=== PATIENT | male | born 1995 | race Asian ===

== ENCOUNTER 2016-08-17 00:04 | Emergency (ER) | payer OTHER ==
--- NOTE | 2016-08-17 00:26 | EDPHY ---
H & P Stated Complaint: heart "heavy" anxiety ? HPI/ROS: HPI CHIEF COMPLAINT: chest tightness, tingling in arms HISTORY OF PRESENT ILLNESS: This patient very pleasant 21-year-old male, significant past medical history for HIV, on medication, presents emergency room at 12:30 p.m. at night with heaviness in his chest and tingling in his arms. He tells me does not feel anxious. He states this happened about 3 hours ago. He tells me over the past few months he has had tingling in his legs and arms every morning when he wakes up. He denies a history of anxiety or panic attacks. He denies nausea vomiting recent illness, denies cough, denies fever, denies chest pain or pain radiating down his arm back or neck. Currently tells me that his arms or tingling and he has tightness across his chest. 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 Exam Constitutional appears well nontoxic, triage nursing summary reviewed, vital signs reviewed, awake/alert. Eyes normal conjunctivae and sclera, EOMI, PERRLA. HENT normal inspection, atraumatic, moist mucus membranes, no epistaxis, neck supple/ no meningismus, no raccoon eyes. Respiratory clear to auscultation bilaterally, normal breath sounds, no respiratory distress, no wheezing. Cardiovascular rate normal, regular rhythm, no murmur, no edema, distal pulses normal. Gastrointestinal soft, non-tender, no rebound, no guarding, normal bowel sounds, no distension, no pulsatile mass. Genitourinary no CVA tenderness. Musculoskeletal no midline vertebral tenderness, full range of motion, no calf swelling, no tenderness of extremities, no meningismus, good pulses, neurovascularly intact. Skin pink, warm, & dry, no rash, skin atraumatic. Neurologic awake, alert and oriented x 3, AAOx3, moves all 4 extremities equally, motor intact, sensory intact, CN II-XII intact, normal cerebellar, normal vision, normal speech. Psychiatric normal mood/affect. Heme/Lymph/Immune no lymphadenopathy. Differential diagnosis includes but is not limited to: acute anxiety,ACS, atypical chest pain, pneumothorax, pneumonia, pulmonary embolism, aortic dissection, congestive heart failure, tumor, musculoskeletal pain, esophageal pain, GERD, peptic ulcer disease, pancreatitis Medical Decision Making: The patient had an IV established obtain blood work he will be hydrated normal saline, IV Ativan for anxiety, check an EKG, chest x- ray and troponin. Unlikely to be acute coronary syndrome most likely anxiety. Re-evaluation: EKG interpretation by me on record in [facility] system. Impression time of EKG 12:34 a.m., this is sinus rhythm rate of 74 there is an early report pattern present. Otherwise unremarkable EKG. CT scan of the angiogram chest with IV contrast The results of the study are negative for pulmonary embolism no pericardial effusion, no pneumonia unremarkable CT angiogram of the chest The study was read by Dr. Correa I viewed the images myself on the PACS system. 0240: Re-evaluation this time this patient is resting comfortably no acute distress. He is requesting be discharged. He is comfortable discharge planning. He has no chest pain or shortness of breath his workup is unremarkable he did have a positive D-dimer however CT angiogram of his chest is unremarkable. Source: Patient - Personal History Current Tetanus/Diphtheria Vaccine: Yes Current Tetanus Diphtheria and Acellular Pertussis (TDAP): Yes - Medical/Surgical History Hx Asthma: No Hx Chronic Respiratory Disease: No Hx Diabetes: No Hx Cardiac Disease: No Hx Renal Disease: No Hx Cirrhosis: No Hx Alcoholism: No Hx HIV/AIDS: No Hx Splenectomy or Spleen Trauma: No Constitutional: Initial Vital Signs Temperature (C) 36.4 C 08/17/16 00:14 Heart Rate 80 08/17/16 00:14 Respiratory Rate 18 08/17/16 00:14 Blood Pressure 116/57 L 08/17/16 00:14 O2 Sat (%) 97 08/17/16 00:14 O2 Delivery Mode Room Air Allergies/Adverse Reactions: No Known Allergies Allergy (Unverified 08/17/16 00:12) Home Medications: Medication Instructions Recorded Lorazepam [Ativan] 1 mg PO DAILY #5 tablet 08/17/16 Triumeq Tablet 08/17/16 Medical Decision Making - Data Points Laboratory Results: Laboratory Results 08/17/16 00:50 08/17/16 00:50 08/17/16 00:50 WBC 8.20 10^3/uL (3.80-9.50) RBC 4.73 10^6/uL (4.40-6.38) Hgb 16.2 g/dL (13.7-17.5) Hct 44.6 % (40.0-51.0) MCV 94.3 fL (81.5-99.8) MCH 34.2 H pg (27.9-34.1) MCHC 36.3 g/dL (32.4-36.7) RDW 11.9 % (11.5-15.2) Plt Count 202 10^3/uL (150-400) MPV 10.3 fL (8.7-11.7) Neut % (Auto) 51.6 % (39.3-74.2) Lymph % (Auto) 40.7 % (15.0-45.0) [place] % (Auto) 6.1 % (4.5-13.0) Eos % (Auto) 1.0 % (0.6-7.6) Baso % (Auto) 0.4 % (0.3-1.7) Nucleat RBC Rel Count 0.0 % (0.0-0.2) Absolute Neuts (auto) 4.23 10^3/uL (1.70-6.50) Absolute Lymphs (auto) 3.34 H 10^3/uL (1.00-3.00) Absolute Monos (auto) 0.50 10^3/uL (0.30-0.80) Absolute Eos (auto) 0.08 10^3/uL (0.03-0.40) Absolute Basos (auto) 0.03 10^3/uL (0.02-0.10) Absolute Nucleated RBC 0.00 10^3/uL (0-0.01) Immature Gran % 0.2 % (0.0-1.1) Immature Gran # 0.02 10^3/uL (0.00-0.10) D-Dimer 0.55 H ug/mLFEU (0.00-0.50) Turbidity 237 Sodium 140 mEq/L (134-144) Potassium 4.5 mEq/L (3.5-5.2) Chloride 105 mEq/L (97-110) Carbon Dioxide 24 mEq/l (22-31) Anion Gap 11 mEq/L (8-16) BUN 19 mg/dL (7-23) Creatinine 0.9 mg/dL (0.7-1.3) Estimated GFR > 60 Glucose 91 mg/dL (70-100) Calcium 9.2 mg/dL (8.5-10.4) Magnesium 2.0 mg/dL (1.6-2.3) Total Bilirubin 1.3 mg/dL (0.1-1.4) Conjugated Bilirubin 1.2 H mg/dL (0.0-0.5) Unconjugated Bilirubin 0.1 mg/dL (0.0-1.1) AST 39 IU/L (17-59) ALT 32 IU/L (21-72) Alkaline Phosphatase 63 IU/L (38-126) Creatine Kinase 132 IU/L (0-224) CK-MB (CK-2) Fraction 0.91 ng/mL (0-3.19) Troponin I < 0.012 ng/mL (0-0.034) NT-Pro-B Natriuret Pep 34 pg/mL (0-125) Total Protein 7.6 g/dL (6.3-8.2) Albumin 4.4 g/dL (3.5-5.0) Lipase 53.0 IU/L (23-300) Specimen Hemolysis 215 Medications Given: Discontinued Medications Sodium Chloride (Ns) 1,000 mls @ 0 mls/hr IV ONCE ONE PRN Reason: As Directed Stop: 08/17/16 00:38 Last Admin: 08/17/16 00:54 Dose: 1,000 mls Lorazepam (Ativan Injection) 0.5 mg IVP EDNOW ONE Stop: 08/17/16 00:38 Last Admin: 08/17/16 00:54 Dose: 0.5 mg Departure - Departure Disposition: Home, Routine, Self-Care Clinical Impression: Anxiety Condition: Good Instructions: Anxiety (ED) Additional Instructions: 1. return to the emergency room if develops any worsening symptoms questions or concerns. 2. only take Ativan anxiety medication if you need if her feeling very anxious. Referrals: Solange Antunez NP [Primary Care Provider] - As per Instructions Prescriptions: Lorazepam [Ativan] 1 mg PO DAILY #5 tablet
--- NOTE | 2016-08-17 00:36 | CPEKG ---
Heart Rate: 74 RR Interval: 811 P-R Interval: 168 QRSD Interval: 98 QT Interval: 360 QTC Interval: [address] [place]: [address] [place]: [address] [place]: 64 EKG Severity - NORMAL ECG - EKG Impression: SINUS RHYTHM Electronically Signed By: Otilio Rizzo 17-Aug-2016 10:10:46
[2016-08-17] MEDS ORDERED: NS 1,000 ML IV ONE (00:37)
[2016-08-17] MEDS ORDERED: LORazepam 2 MG/ML INJ IVP ONE (00:37)
[2016-08-17 01:00] LABS: % IMMATURE GRANULYOCYTES 0.2 % (0.0-1.1); ABSOLUTE IMMATURE GRANULOCYTES 0.02 10^3/uL (0.00-0.10); ADD DIFF? NO; ADD MORPH? NO; ADD SCAN? NO; ATYPICAL LYMPHOCYTE FLAG 0 (0-99); FRAGMENT RBC FLAG 0 (0-99); HEMATOCRIT 44.6 % (40.0-51.0); HEMOGLOBIN 16.2 g/dL (13.7-17.5); LEFT SHIFT FLG 0 (0-99); LIPEMIA HEMOLYSIS FLAG 90 (0-99); MEAN CELL HEMOGLOBIN 34.2 pg (27.9-34.1); MEAN CELL HEMOGLOBIN CONCENTR. 36.3 g/dL (32.4-36.7); MEAN CELL VOLUME 94.3 fL (81.5-99.8); MEAN PLATELET VOLUME 10.3 fL (8.7-11.7); PLATELET CLUMPS FLAG 10 (0-99); PLATELET COUNT 202 10^3/uL (150-400); RED BLOOD CELL COUNT 4.73 10^6/uL (4.40-6.38); RED CELL DISTRIBUTION WIDTH 11.9 % (11.5-15.2)
[2016-08-17 01:10] LABS: ALANINE AMINOTRANSFERASE 32 IU/L (21-72); ALBUMIN 4.4 g/dL (3.5-5.0); ALKALINE PHOSPHATASE 63 IU/L (38-126); ANION GAP 11 mEq/L (8-16); ASPARTATE AMINOTRANSFERASE 39 IU/L (17-59); BILIRUBIN,TOTAL 1.3 mg/dL (0.1-1.4); BILIRUBIN-CONJUGATED 1.2 mg/dL (0.0-0.5); BILIRUBIN-UNCONJUGATED 0.1 mg/dL (0.0-1.1); CALCIUM 9.2 mg/dL (8.5-10.4); CARBON DIOXIDE 24 mEq/l (22-31); CHLORIDE 105 mEq/L (97-110); CREATININE 0.9 mg/dL (0.7-1.3); GLOMERULAR FILTRATION RATE > 60; GLUCOSE 91 mg/dL (70-100); POTASSIUM 4.5 mEq/L (3.5-5.2); SODIUM 140 mEq/L (134-144); SPECIMEN TURBIDITY 237; TOTAL PROTEIN 7.6 g/dL (6.3-8.2)
[2016-08-17 01:17] LABS: SPECIMEN HEMOLYSIS 215
[2016-08-17 01:22] LABS: CREATINE KINASE-MB FRACTION 0.91 ng/mL (0-3.19); TROPONIN I < 0.012 ng/mL (0-0.034)
[2016-08-17] MEDS ORDERED: IOPAMIDOL (ISOVUE 370) 100 ML BTL IV ONE (01:34)
[2016-08-17] MEDS ORDERED: LORAZEPAM 1 MG PREPACK#4 BTL TAKEHOME ONE ×2 (02:53→03:06)
[2016-08-17 03:05] VITALS: RESP 18
[2016-08-17 03:23] VITALS: BP 129/72; PULSE 83; TEMP 97.9; O2SAT 94
[2016-08-17] MEDS ORDERED: HEPARIN PRESERV FREE 1 UNIT/1 ML 5 ML SYR IVP SCH (03:30)
--- NOTE | 2016-08-17 09:11 | CT ---
CT Chest Angiogram Indication: Pleuritic pain. Technique: Thinly collimated multidetector helical CT imaging was performed through the chest while 75 mL of Isovue-370 were injected intravenously without complication. The images were then transferr ed to an independent workstation where multiplanar reconstructions were performed. Dose reduction margo hniques were utilized. Comparison: Portable chest earlier today. Findings: CT Chest Angiogram: The pulmonary arterial system is well opacified. No intraluminal filling defect s to suggest acute or chronic thrombopulmonary embolic disease. The thoracic aorta is normal caliber . No aneurysm or dissection. CT Chest: The lungs are well aerated and clear. No pneumothorax, pulmonary edema, or airspace consoli dation. The central airway is clear. No pericardial or pleural effusion. No enlarged lymph nodes or m asses. The imaged portion of the upper abdomen is negative. No paraspinal soft tissue swelling, fract ure, or bone lesion. Impression: 1. No evidence of thrombopulmonary embolic disease. 2. Clear lungs. No explanation for pleuritic pain. The study was performed as an emergency on-call case and discussed by telephone with Dr. Montano at 2 :15 a.m. August 17, 2016. The final interpretation is concordant with the original communication.
--- NOTE | 2016-08-17 10:23 | DX ---
Portable Chest, 00:49 History: Chest pain Comparison: None Findings: Lungs clear. Heart size and pulmonary vascularity are normal. No pleural effusion or pneumo thorax. No obvious skeletal abnormality. Impression: Negative
== END 2016-08-17 03:04 | disposition home or self-care (01) ==
DX: F41.9 Anxiety disorder, unspecified (principal); B20 Human immunodeficiency virus [HIV] disease
CPT/HCPCS: 96374; Q9967

== ENCOUNTER 2016-08-28 20:10 | Emergency (ER) | payer OTHER ==
[2016-08-28] MEDS ORDERED: NS 1,000 ML IV ONE (20:35)
--- NOTE | 2016-08-28 21:02 | CPEKG ---
Heart Rate: 87 RR Interval: 690 P-R Interval: 172 QRSD Interval: 102 QT Interval: 356 QTC Interval: 429 P [place]: 73 QRS [place]: 47 T Wave [place]: 62 EKG Severity - NORMAL ECG - EKG Impression: SINUS RHYTHM Electronically Signed By: Otilio Rizzo 28-Aug-2016 22:02:25
[2016-08-28 21:14] LABS: % IMMATURE GRANULYOCYTES 0.3 % (0.0-1.1); ABSOLUTE IMMATURE GRANULOCYTES 0.02 10^3/uL (0.00-0.10); ADD DIFF? NO; ADD MORPH? NO; ADD SCAN? NO; ATYPICAL LYMPHOCYTE FLAG 10 (0-99); FRAGMENT RBC FLAG 0 (0-99); HEMATOCRIT 45.7 % (40.0-51.0); HEMOGLOBIN 16.2 g/dL (13.7-17.5); LEFT SHIFT FLG 0 (0-99); LIPEMIA HEMOLYSIS FLAG 90 (0-99); MEAN CELL HEMOGLOBIN 33.4 pg (27.9-34.1); MEAN CELL HEMOGLOBIN CONCENTR. 35.4 g/dL (32.4-36.7); MEAN CELL VOLUME 94.2 fL (81.5-99.8); MEAN PLATELET VOLUME 9.8 fL (8.7-11.7); PLATELET CLUMPS FLAG 0 (0-99); PLATELET COUNT 235 10^3/uL (150-400); RED BLOOD CELL COUNT 4.85 10^6/uL (4.40-6.38); RED CELL DISTRIBUTION WIDTH 11.7 % (11.5-15.2)
[2016-08-28 21:37] LABS: ANION GAP 14 mEq/L (8-16); CALCIUM 9.8 mg/dL (8.5-10.4); CARBON DIOXIDE 25 mEq/l (22-31); CHLORIDE 104 mEq/L (97-110); CREATININE 1.1 mg/dL (0.7-1.3); GLOMERULAR FILTRATION RATE > 60; GLUCOSE 99 mg/dL (70-100); POTASSIUM 3.9 mEq/L (3.5-5.2); SODIUM 143 mEq/L (134-144)
--- NOTE | 2016-08-28 22:03 | EDPHY ---
H & P Stated Complaint: tingling in arms and legs and "whole body" x few months, worse recently Time Seen by Provider: 08/28/16 20:34 HPI/ROS: Chief complaint: Numbness throughout body History of present illness: This is a 21-year-old male who is HIV positive and reports a normal CD4 count and undetectable viral loads who presents to the emergency department reporting numbness throughout his body. Patient reports his entire body feels numb. He has had problems for the last few months. Symptoms have been worsening. Tonight is the worst it has been. He does state he occasionally feels dizzy with this. He describes it as a lightheadedness. He denies precipitating factors. He denies alleviating factors. He denies other associated signs or symptoms including no associated weakness, no bowel or bladder dysfunction, no headache, no cold symptoms, no pain anywhere. Review of systems: A 10 point review of systems was obtained and other than described above was negative - Personal History Current Tetanus/Diphtheria Vaccine: Yes Current Tetanus Diphtheria and Acellular Pertussis (TDAP): Yes Tetanus Vaccine Date: less than 5 years - Medical/Surgical History Hx Asthma: No Hx Chronic Respiratory Disease: No Hx Diabetes: No Hx Cardiac Disease: Yes Hx Renal Disease: No Hx Cirrhosis: No Hx Alcoholism: No Hx HIV/AIDS: No Hx Splenectomy or Spleen Trauma: No Other PMH: myocarditis as a child - Social History Smoking Status: Never smoked - Physical Exam Exam: General Appearance: Alert, nontoxic . Eyes: Pupils equal and round no pallor or injection. ENT, Mouth: Mucous membranes moist. Respiratory: There are no retractions, lungs are clear to auscultation. Cardiovascular: Regular rate and rhythm. Gastrointestinal: Abdomen is soft and nontender, no masses, bowel sounds normal. Neurological: Alert and oriented x4. Cranial nerves 2-12 grossly intact. Strength and sensation intact and symmetrical. No pronator drift. Ambulating without difficulty. Skin: Warm and dry, no rashes. Musculoskeletal: Neck is supple nontender. Extremities are symmetrical, full range of motion. Psychiatric: Patient is oriented X 3, there is no agitation. Constitutional: Initial Vital Signs Temperature (C) 36.8 C 08/28/16 20:22 Heart Rate 92 08/28/16 20:22 Respiratory Rate 18 08/28/16 20:22 Blood Pressure 99/60 L 08/28/16 20:22 O2 Sat (%) 94 08/28/16 20:22 O2 Delivery Mode Room Air Allergies/Adverse Reactions: No Known Allergies Allergy (Unverified 08/17/16 00:12) Home Medications: Medication Instructions Recorded Triumeq Tablet 08/17/16 Medical Decision Making ED Course/Re-evaluation: Patient discussed with my secondary supervising physician Dr. Otilio Rizzo. Patient presents to the emergency department reporting numbness throughout his entire body. He is nontoxic. Afebrile and vital signs are stable. He has an unremarkable physical exam including a nonfocal neurologic exam. Blood studies are unremarkable. He was seen just over a week ago in this emergency department for similar symptoms. He had an extensive workup at that time which was unremarkable. Patient will be discharged home. Home care is discussed. He is referred to Neurology for recheck. Return precautions are given. Patient voiced understanding and agreement with plan. Differential Diagnosis: Included but not limited to anxiety, anemia, electrolyte disturbances, infectious pathology - Data Points Laboratory Results: Laboratory Results 08/28/16 21:00 08/28/16 21:00 08/28/16 08/28/16 08/28/16 21:00 21:00 21:00 WBC 7.01 10^3/uL 10^3/uL (3.80-9.50) RBC 4.85 10^6/uL 10^6/uL (4.40-6.38) Hgb 16.2 g/dL g/dL (13.7-17.5) Hct 45.7 % % (40.0-51.0) MCV 94.2 fL fL (81.5-99.8) MCH 33.4 pg pg (27.9-34.1) MCHC 35.4 g/dL g/dL (32.4-36.7) RDW 11.7 % % (11.5-15.2) Plt Count 235 10^3/uL 10^3/uL (150-400) MPV 9.8 fL fL (8.7-11.7) Neut % (Auto) 41.5 % % (39.3-74.2) Lymph % (Auto) 48.9 % H % (15.0-45.0) [place] % (Auto) 7.8 % % (4.5-13.0) Eos % (Auto) 1.1 % % (0.6-7.6) Baso % (Auto) 0.4 % % (0.3-1.7) Nucleat RBC Rel Count 0.0 % % (0.0-0.2) Absolute Neuts (auto) 2.90 10^3/uL 10^3/uL (1.70-6.50) Absolute Lymphs (auto) 3.43 10^3/uL H 10^3/uL (1.00-3.00) Absolute Monos (auto) 0.55 10^3/uL 10^3/uL (0.30-0.80) Absolute Eos (auto) 0.08 10^3/uL 10^3/uL (0.03-0.40) Absolute Basos (auto) 0.03 10^3/uL 10^3/uL (0.02-0.10) Absolute Nucleated RBC 0.00 10^3/uL 10^3/uL (0-0.01) Immature Gran % 0.3 % % (0.0-1.1) Immature Gran # 0.02 10^3/uL 10^3/uL (0.00-0.10) Sodium 143 mEq/L mEq/L (134-144) Potassium 3.9 mEq/L mEq/L (3.5-5.2) Chloride 104 mEq/L mEq/L (97-110) Carbon Dioxide 25 mEq/l mEq/l (22-31) Anion Gap 14 mEq/L mEq/L (8-16) BUN 21 mg/dL mg/dL (7-23) Creatinine 1.1 mg/dL mg/dL (0.7-1.3) Estimated GFR > 60 Glucose 99 mg/dL mg/dL (70-100) Calcium 9.8 mg/dL mg/dL (8.5-10.4) Magnesium 2.2 mg/dL mg/dL (1.6-2.3) Medications Given: Discontinued Medications Sodium Chloride (Ns) 1,000 mls @ 0 mls/hr IV ONCE ONE PRN Reason: Wide Open Stop: 08/28/16 20:36 Last Admin: 08/28/16 21:06 Dose: 1,000 mls Lorazepam (Ativan 1 Mg Prepack#4) 1 btl TAKEHOME EDNOW ONE Stop: 08/28/16 22:31 Last Admin: 08/28/16 23:15 Dose: 1 btl Departure - Departure Disposition: Home, Routine, Self-Care Clinical Impression: Paresthesia Condition: Good Instructions: Paresthesia (ED) Additional Instructions: Follow-up with Neurology for continued evaluation and care If symptoms worsen or new symptoms develop return to the emergency department for recheck Referrals: NONE *PRIMARY CARE P,. [Primary Care Provider] - As per Instructions Jm Gunter MD [Medical Doctor] - As per Instructions
[2016-08-28] MEDS ORDERED: LORAZEPAM 1 MG PREPACK#4 BTL TAKEHOME ONE (22:30)
[2016-08-28 22:48] VITALS: BP 116/61; PULSE 74; RESP 20; TEMP 98.1; O2SAT 95
== END 2016-08-28 22:46 | disposition home or self-care (01) ==
LOC: EEVIPCON 20:10
DX: R20.2 Paresthesia of skin (principal)

== ENCOUNTER → 2016-09-01 | Outpatient (CLI) | payer OTHER | LOC: FIMAGING 10:21 | PROVIDERS: ATTEND Physician Assistant Medical | DX: R20.0 Anesthesia of skin (principal); B20 Human immunodeficiency virus [HIV] disease ==

== ENCOUNTER 2017-06-23 20:35 | Observation (INO) | payer OTHER ==
[2017-06-23 21:52] LABS: % IMMATURE GRANULYOCYTES 0.3 % (0.0-1.1); ABSOLUTE IMMATURE GRANULOCYTES 0.02 10^3/uL (0.00-0.10); ADD DIFF? NO; ADD MORPH? NO; ADD SCAN? NO; ATYPICAL LYMPHOCYTE FLAG 0 (0-99); FRAGMENT RBC FLAG 0 (0-99); HEMATOCRIT 45.9 % (40.0-51.0); HEMOGLOBIN 16.3 g/dL (13.7-17.5); LEFT SHIFT FLG 0 (0-99); LIPEMIA HEMOLYSIS FLAG 90 (0-99); MEAN CELL HEMOGLOBIN 33.1 pg (27.9-34.1); MEAN CELL HEMOGLOBIN CONCENTR. 35.5 g/dL (32.4-36.7); MEAN CELL VOLUME 93.3 fL (81.5-99.8); MEAN PLATELET VOLUME 10.4 fL (8.7-11.7); PLATELET CLUMPS FLAG 0 (0-99); PLATELET COUNT 177 10^3/uL (150-400); RED BLOOD CELL COUNT 4.92 10^6/uL (4.40-6.38); RED CELL DISTRIBUTION WIDTH 11.9 % (11.5-15.2)
[2017-06-23 21:59] LABS: ANION GAP 9 mEq/L (8-16); CALCIUM 9.7 mg/dL (8.5-10.4); CARBON DIOXIDE 29 mEq/l (22-31); CHLORIDE 100 mEq/L (97-110); CREATININE 1.3 mg/dL (0.7-1.3); GLOMERULAR FILTRATION RATE > 60; GLUCOSE 111 mg/dL (70-100); POTASSIUM 3.8 mEq/L (3.5-5.2); SODIUM 138 mEq/L (134-144)
[2017-06-23] MEDS ORDERED: ACETAMINOPHEN 500 MG TAB ONE (22:11)
[2017-06-23] MEDS ORDERED: IBUPROFEN 600 MG TAB PO ONE (22:11)
[2017-06-23] MEDS ORDERED: ACETAMINOPHEN 500 MG TAB PO ONE (22:12)
[2017-06-23] MEDS ORDERED: IBUPROFEN 200 MG TAB PO ONE (22:12)
--- NOTE | 2017-06-23 22:17 | EDPHY ---
H & P Stated Complaint: body aches since 1400- states fever - Personal History Current Tetanus/Diphtheria Vaccine: Unsure Current Tetanus Diphtheria and Acellular Pertussis (TDAP): Unsure Tetanus Vaccine Date: less than 5 years - Medical/Surgical History Hx Asthma: No Hx Chronic Respiratory Disease: No Hx Diabetes: No Hx Cardiac Disease: Yes Hx Renal Disease: No Hx Cirrhosis: No Hx Alcoholism: No Hx HIV/AIDS: No Hx Splenectomy or Spleen Trauma: No Other PMH: myocarditis as a child - Social History Smoking Status: Never smoked Time Seen by Provider: 06/23/17 22:04 HPI/ROS: CHIEF COMPLAINT: Flu-like symptoms since 1:00 p.m. HISTORY OF PRESENT ILLNESS: 22-year-old male HIV-positive with with nondetectable viral load, followed by the [facility], complaining of flu- like symptoms since 1:00 p.m. today including nonproductive cough without dyspnea, myalgias, diarrhea without abdominal pain. Urinary habits normal. No sore throat. No nuchal rigidity. No headache. No chest pain. No abdominal pain. No international travel. PCP: [facility], REVIEW OF SYSTEMS: A ten point review of systems was performed and is negative with the exception of the items mentioned in the HPI PAST MEDICAL & SURGICAL HISTORY: HIV-positive nondetectable viral load. Positive influenza vaccination this season SOCIAL HISTORY: Nonsmoker PHYSICAL EXAM (Prior to examination, patient consented to physical exam, hands were washed and my usual and customary physical exam procedures followed) 1) GENERAL: Well-developed, well-nourished, alert and oriented. Appears nontoxic 2) HEAD: Normocephalic, atraumatic 3) HEENT: Pupils equal, round, reactive to light bilaterally. Sclera anicteric. Nasopharynx, oropharynx, clear, no lesions. No tonsillar enlargement or exudate. Ears bilaterally with normal tympanic membranes. 4) NECK: Full range of motion, no meningeal signs. 5) LUNGS: Clear auscultation bilaterally, no wheezes, no rhonchi, no retractions. 6) HEART: Regular rate and rhythm, no murmur, no heave, no gallop. 7) ABDOMEN: No guarding, no rebound, no focal tenderness, negative McBurney's, negative Javier's, negative Rovsing's, negative peritoneal sign, 8) MUSCULOSKELETAL: Moving all extremities, no focal areas of tenderness, no obvious trauma. No peripheral edema or discoloration. 9) BACK: No CVA tenderness, no midline vertebral tenderness, no fluctuance, no step-off, no obvious trauma, no visual or palpable abnormality. 10) SKIN: No rash, no petechiae. 11) Psychiatric: Patient is oriented X 3, there is no agitation. DIFFERENTIAL DIAGNOSIS: In no particular include but limited to meningitis, sepsis, influenza, pneumonia (Maryam Cordoba) Constitutional: Initial Vital Signs Temperature (C) 37.7 C 06/23/17 20:52 Heart Rate 120 H 06/23/17 20:52 Respiratory Rate 18 06/23/17 20:52 Blood Pressure 109/67 06/23/17 20:52 O2 Sat (%) 96 06/23/17 20:52 O2 Delivery Mode Room Air Allergies/Adverse Reactions: No Known Allergies Allergy (Unverified 08/17/16 00:12) Home Medications: Medication Instructions Recorded Triumeq Tablet 08/17/16 Medical Decision Making ED Course/Re-evaluation: 11:21 p.m.: Tamiflu will be administered to the patient, positive influenza a, symptomatic for less than 12 hr, history of HIV positive. Patient remains tachycardic. Will administer further IV fluids Midnight: Patient remains tachycardic in the 120s after 2 L of IV fluid, he remains febrile 39.4 after 1 g of Tylenol and 800 mg of ibuprofen. Patient also seen exam by Dr Savage in the ER 12:[address] Jaki Magana who agrees to admit patient for observation, continued hydration. Chest x-ray will be obtained on the patient. (Maryam Cordoba) ED PA DICTATION I evaluated and participated in the management of the patient. I also evaluated the patient independently. My co-signature indicates that I have reviewed this chart and I agree with the findings and plan of care as documented. My personal H&P findings include: 22-year-old male with HIV, viral load undetectable, on anti-retroviral treatment presents with 1 day of generalized malaise, myalgias, URI type symptoms. Here has lab testing positive for flu B. otherwise, labs unremarkable. Persistently tachycardic after fluids and antipyretics. On (Montserrat Savage) - Data Points Laboratory Results: Laboratory Results 06/23/17 20:11 06/23/17 20:11 06/23/17 06/23/17 06/23/17 21:57 20:11 20:11 WBC 7.15 10^3/uL 10^3/uL (3.80-9.50) RBC 4.92 10^6/uL 10^6/uL (4.40-6.38) Hgb 16.3 g/dL g/dL (13.7-17.5) Hct 45.9 % % (40.0-51.0) MCV 93.3 fL fL (81.5-99.8) MCH 33.1 pg pg (27.9-34.1) MCHC 35.5 g/dL g/dL (32.4-36.7) RDW 11.9 % % (11.5-15.2) Plt Count 177 10^3/uL 10^3/uL (150-400) MPV 10.4 fL fL (8.7-11.7) Neut % (Auto) 81.6 % H % (39.3-74.2) Lymph % (Auto) 9.2 % L % (15.0-45.0) [place] % (Auto) 8.3 % % (4.5-13.0) Eos % (Auto) 0.3 % L % (0.6-7.6) Baso % (Auto) 0.3 % % (0.3-1.7) Nucleat RBC Rel Count 0.0 % % (0.0-0.2) Absolute Neuts (auto) 5.84 10^3/uL 10^3/uL (1.70-6.50) Absolute Lymphs (auto) 0.66 10^3/uL L 10^3/uL (1.00-3.00) Absolute Monos (auto) 0.59 10^3/uL 10^3/uL (0.30-0.80) Absolute Eos (auto) 0.02 10^3/uL L 10^3/uL (0.03-0.40) Absolute Basos (auto) 0.02 10^3/uL 10^3/uL (0.02-0.10) Absolute Nucleated RBC 0.00 10^3/uL 10^3/uL (0-0.01) Immature Gran % 0.3 % % (0.0-1.1) Immature Gran # 0.02 10^3/uL 10^3/uL (0.00-0.10) Sodium 138 mEq/L mEq/L (134-144) Potassium 3.8 mEq/L mEq/L (3.5-5.2) Chloride 100 mEq/L mEq/L (97-110) Carbon Dioxide 29 mEq/l mEq/l (22-31) Anion Gap 9 mEq/L mEq/L (8-16) BUN 14 mg/dL mg/dL (7-23) Creatinine 1.3 mg/dL mg/dL (0.7-1.3) Estimated GFR > 60 Glucose 111 mg/dL H mg/dL (70-100) Calcium 9.7 mg/dL mg/dL (8.5-10.4) Nasal Influenza A PCR FLU A DETECTED (NEGATIVE) Nasal Influenza B PCR NEGATIVE FOR FLU B (NEGATIVE) Medications Given: Discontinued Medications Acetaminophen (Tylenol) 1,000 mg PO EDNOW ONE Stop: 06/23/17 22:13 Last Admin: 06/23/17 22:10 Dose: 1,000 mg Sodium Chloride (Ns) 1,000 mls @ 0 mls/hr IV ONCE ONE PRN Reason: Wide Open Stop: 06/23/17 23:05 Last Admin: 06/23/17 23:06 Dose: 1,000 mls Sodium Chloride (Ns) 1,000 mls @ 0 mls/hr IV EDNOW ONE; Wide Open PRN Reason: Protocol Stop: 06/24/17 00:17 Last Admin: 06/24/17 00:36 Dose: 1,000 mls Ibuprofen (Motrin) 800 mg PO EDNOW ONE Stop: 06/23/17 22:13 Last Admin: 06/23/17 22:10 Dose: 800 mg Morphine Sulfate (Morphine) 4 mg IVP EDNOW ONE Stop: 06/23/17 23:13 Last Admin: 06/23/17 23:27 Dose: 4 mg Oseltamivir Phosphate (Tamiflu) 75 mg PO EDNOW ONE Stop: 12/15/17 23:22 Last Admin: 06/23/17 23:26 Dose: 75 mg Departure - Departure Disposition: [facility] Acute Clinical Impression: Influenza A Condition: Fair
[2017-06-23] MEDS ORDERED: NS 1,000 ML IV ONE (23:04)
[2017-06-23] MEDS ORDERED: OSELTAMIVIR PHOSPHATE 75 MG CAP PO ONE (23:21)
[2017-06-24] MEDS ORDERED: NS 1,000 ML IV ONE (00:16)
[2017-06-24] MEDS ORDERED: PROMETHAZINE HCL 25 MG/ML INJ IVP PRN (00:33)
[2017-06-24] MEDS ORDERED: ONDANSETRON 4 MG/2 ML VIAL IVP PRN (00:33)
[2017-06-24] MEDS ORDERED: HYDROCODONE/APAP 5/325 TAB PO PRN (00:33)
[2017-06-24] MEDS ORDERED: LORazepam 0.5 MG TAB PO PRN (00:33)
--- NOTE | 2017-06-24 02:12 | PDGENHP ---
History and Physical - Chief Complaint flu like symptoms, cough, diarrhea - History of Present Illness Source - patient provides history and appears reliable. HPI - Pleasant 22 yo M (goes by name Alfonso) with pmhx significant for HIV on triumeq antiviral therapy who presents to the ED today with complaints of flu like symptoms. Patient notes cough, rhinorrhea, sore throat, myalgias and diarrhea. Patient denies any abdominal pain or dysuria. Patient denies any fevers/chills until he arrived to ED patient spiked a temp. Patient without any known sick contacts. He is pretty sure he received his flu shot this year. Patient symptoms started suddenly this afternoon. History Information - Allergies/Home Medication List Allergies/Adverse Reactions: No Known Allergies Allergy (Unverified 08/17/16 00:12) Home Medications: Triumeq Tablet 08/17/16 [Last Taken Unknown] I have personally reviewed and updated: family history, medical history, social history, surgical history - Past Medical History Additional medical history: HIV. 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 Primary residence is [place]. COR - FULL. Review of Systems Review of Systems: ROS: 10pt was reviewed & negative except for what was stated in HPI & below Constitutional: Reports: malaise, recent illness (sx today see HPI. ). Denies: chills, fever EENMT: Reports: nose congestion, sore throat (improved. ). Denies: blurred vision Cardiac: Reports: no symptoms, lightheadedness. Denies: chest pain, edema, palpitations Respiratory: Reports: cough, other (patient reports lungs feel heavy with increased effort required to breath but denies SOB. ). Denies: shortness of breath, wheezing Gastrointestinal: Reports: diarrhea. Denies: vomitting, black stools, rectal bleeding, abdominal pain Genitourinary: Denies: burning, dysuria, hematuria Muscolosketal: Reports: muscle pain. Denies: joint pain Skin: Reports: no symptoms. Denies: rash Neurological: Reports: no symptoms. Denies: anxiety, depressed, numbness, tingling, weakness Physical Exam Physical Exam: Selected Entries 06/23/17 20:52 Heart Rate 120 H Respiratory 18 Rate O2 Sat (%) 96 Temperature (C) 37.7 C Blood Pressure 109/67 Mean Arterial 81 Pressure (MAP) O2 Delivery Room Air Mode Temperature Oral Source Temp Pulse Resp BP Pulse Ox 36.9 C 110 H 16 92/49 L 94 06/24/17 01:06 06/24/17 01:06 06/24/17 01:06 06/24/17 01:06 06/24/17 01:06 Constitutional: no apparent distress, other (acutely ill, fatigued but nontoxic. ) Eyes: PERRL, anicteric sclera, EOMI, No scleral injection Ears, Nose, Mouth, Throat: moist mucous membranes, dry mucous membranes, other ( minimal oropharyngeal erythema no exudates. ), No oral ulcer Cardiovascular: no murmur, rub, or gallop, tachycardia (regular rhythm), No edema Peripheral Pulses: 2+: dorsalis-pedis (R) Respiratory: no respiratory distress, no rales or rhonchi, clear to auscultation Gastrointestinal: normoactive bowel sounds, soft, non-tender abdomen, no palpable masses, No guarding, No distension Genitourinary: no bladder tenderness, No white in urethra Skin: warm, normal color, No rash Musculoskeletal: full muscle strength, No pain with ROM, No generalized weakness Neurologic: AAOx3, sensation intact bilaterally, other (grossly nonfocal exam. moves all extremities. ) Psychiatric: interacting appropriately, not anxious, not encephalopathic, thought process linear Lab Data & Imaging Review 06/23/17 20:11 06/23/17 20:11 WBC 7.15 10^3/uL (3.80-9.50) 06/23/17 20:11 RBC 4.92 10^6/uL (4.40-6.38) 06/23/17 20:11 Hgb 16.3 g/dL (13.7-17.5) 06/23/17 20:11 Hct 45.9 % (40.0-51.0) 06/23/17 20:11 MCV 93.3 fL (81.5-99.8) 06/23/17 20:11 MCH 33.1 pg (27.9-34.1) 06/23/17 20:11 MCHC 35.5 g/dL (32.4-36.7) 06/23/17 20:11 RDW 11.9 % (11.5-15.2) 06/23/17 20:11 Plt Count 177 10^3/uL (150-400) 06/23/17 20:11 MPV 10.4 fL (8.7-11.7) 06/23/17 20:11 Neut % (Auto) 81.6 % (39.3-74.2) H 06/23/17 20:11 Lymph % (Auto) 9.2 % (15.0-45.0) L 06/23/17 20:11 Major % (Auto) 8.3 % (4.5-13.0) 06/23/17 20:11 Eos % (Auto) 0.3 % (0.6-7.6) L 06/23/17 20:11 Baso % (Auto) 0.3 % (0.3-1.7) 06/23/17 20:11 Nucleat RBC Rel Count 0.0 % (0.0-0.2) 06/23/17 20:11 Absolute Neuts (auto) 5.84 10^3/uL (1.70-6.50) 06/23/17 20:11 Absolute Lymphs (auto) 0.66 10^3/uL (1.00-3.00) L 06/23/17 20:11 Absolute Monos (auto) 0.59 10^3/uL (0.30-0.80) 06/23/17 20:11 Absolute Eos (auto) 0.02 10^3/uL (0.03-0.40) L 06/23/17 20:11 Absolute Basos (auto) 0.02 10^3/uL (0.02-0.10) 06/23/17 20:11 Absolute Nucleated RBC 0.00 10^3/uL (0-0.01) 06/23/17 20:11 Immature Gran % 0.3 % (0.0-1.1) 06/23/17 20:11 Immature Gran # 0.02 10^3/uL (0.00-0.10) 06/23/17 20:11 Sodium 138 mEq/L (134-144) 06/23/17 20:11 Potassium 3.8 mEq/L (3.5-5.2) 06/23/17 20:11 Chloride 100 mEq/L (97-110) 06/23/17 20:11 Carbon Dioxide 29 mEq/l (22-31) 06/23/17 20:11 Anion Gap 9 mEq/L (8-16) 06/23/17 20:11 BUN 14 mg/dL (7-23) 06/23/17 20:11 Creatinine 1.3 mg/dL (0.7-1.3) 06/23/17 20:11 Estimated GFR > 60 06/23/17 20:11 Glucose 111 mg/dL (70-100) H 06/23/17 20:11 Calcium 9.7 mg/dL (8.5-10.4) 06/23/17 20:11 Nasal Influenza A PCR FLU A DETECTED (NEGATIVE) 06/23/17 21:57 Nasal Influenza B PCR NEGATIVE FOR FLU B (NEGATIVE) 06/23/17 21:57 Chest X-Ray results: no infiltrate Visualized and Interpreted imaging results: Yes EKG additional interpertation: tele - sinus tach 100s. Assessment & Plan Assessment: 22 yo M presents with hx HIV presents with flu-like sx: Flu A - tamiflu and supportive care. diarrhea - likely related to above. supportive care. imodium prn. SIRS - 2/2 above. tachycardia persists 120s-130s despite 2 liters IVF. monitor overnight and continue IVF. fever developed in ED and continued through admission to the floor. now improved after tylenol. HIV - patient to continue Triumeq. reports undetectable viral load. Followed by [facility]. FEN - IVF. electrolyte replacement prn. diet as tolerated. PPX - low risk. no anticoagulation. SCDs if patient unable to complete early ambulation. COR - FULL. Dispo - Admit to observation on medical floor.
[2017-06-24] MEDS ORDERED: LOPERAMIDE HCL 2 MG CAP PO PRN (02:34)
[2017-06-24 04:49] LABS: % IMMATURE GRANULYOCYTES 0.3 % (0.0-1.1); ABSOLUTE IMMATURE GRANULOCYTES 0.02 10^3/uL (0.00-0.10); ADD DIFF? NO; ADD MORPH? NO; ADD SCAN? NO; ATYPICAL LYMPHOCYTE FLAG 0 (0-99); FRAGMENT RBC FLAG 0 (0-99); HEMATOCRIT 39.3 % (40.0-51.0); HEMOGLOBIN 13.8 g/dL (13.7-17.5); LEFT SHIFT FLG 0 (0-99); LIPEMIA HEMOLYSIS FLAG 90 (0-99); MEAN CELL HEMOGLOBIN 32.8 pg (27.9-34.1); MEAN CELL HEMOGLOBIN CONCENTR. 35.1 g/dL (32.4-36.7); MEAN CELL VOLUME 93.3 fL (81.5-99.8); MEAN PLATELET VOLUME 10.6 fL (8.7-11.7); PLATELET CLUMPS FLAG 0 (0-99); PLATELET COUNT 153 10^3/uL (150-400); RED BLOOD CELL COUNT 4.21 10^6/uL (4.40-6.38); RED CELL DISTRIBUTION WIDTH 11.9 % (11.5-15.2)
[2017-06-24 04:59] LABS: ANION GAP 9 mEq/L (8-16); CALCIUM 8.2 mg/dL (8.5-10.4); CARBON DIOXIDE 24 mEq/l (22-31); CHLORIDE 110 mEq/L (97-110); CREATININE 1.1 mg/dL (0.7-1.3); GLOMERULAR FILTRATION RATE > 60; GLUCOSE 94 mg/dL (70-100); POTASSIUM 3.7 mEq/L (3.5-5.2); SODIUM 143 mEq/L (134-144)
[2017-06-24] MEDS: ACETAMINOPHEN 325 MG TAB PO PRN ×3 (09:15→22:01)
[2017-06-24] MEDS: LR 1,000 ML IV SCH ×3 (09:16→22:00)
[2017-06-24] MEDS: OSELTAMIVIR PHOSPHATE 75 MG CAP PO SCH ×2 (09:59→18:28)
--- NOTE | 2017-06-24 10:19 | ASMTCMCOM ---
CM Note CM Note Notes: Pt admitted for flu. Anticipate pt will DC with no needs. C/M available if needs change. Date Signed: 06/24/2017 10:18 AM Electronically Signed By:Ranjana Zapata LCSW
--- NOTE | 2017-06-24 11:04 | HOSPPROG ---
Hospitalist Progress Note Assessment/Plan: 22y male with c/o fever and chills. First encounter, chart reviewed. D/W RN at bedside #Flu A cont tamiflu supportive care hydration tylenol gave boyfriend script for tamiflu #Fever 2/2 above #HIV cont meds #Diarrhea resolved #SIRS resolved #Tachy in setting of acute infection #FEN better with fluids #Dispo change to inpt status Will need further supportive care in hospital setting Subjective: Feeling better then yesterday. Still feels terrible. Headache and body pain. Objective: Vital Signs Temp Pulse Resp BP Pulse Ox 37.4 C 106 H 18 95/61 L 97 06/24/17 07:20 06/24/17 07:20 06/24/17 07:20 06/24/17 07:20 06/24/17 07:20 Laboratory Results 06/24/17 04:11 06/24/17 04:11 06/23/17 06/24/17 06/25/17 05:59 05:59 05:59 Intake Total 2747 Balance 2747 - Physical Exam Constitutional: no apparent distress, appears nourished, uncomfortable Eyes: PERRL, anicteric sclera, EOMI Ears, Nose, Mouth, Throat: moist mucous membranes, hearing normal, ears appear normal Cardiovascular: tachycardia, No JVD, No edema Respiratory: no respiratory distress, no rales or rhonchi, reduced air movement Gastrointestinal: normoactive bowel sounds, No tenderness, No ascites Skin: warm, normal color, No erythema Musculoskeletal: normal joint ROM, no joint effusions, generalized weakness Neurologic: AAOx3 Psychiatric: interacting appropriately, not anxious, not encephalopathic, thought process linear ICD10 Worksheet Patient Problems: Problems Problem Status Onset Influenza A Acute
[2017-06-24] MEDS ORDERED: LAMIVUDI PO SCH (19:00)
[2017-06-24] MEDS ORDERED: Abacavir/Dolutegravir/Lamivudi [Triumeq Tablet] PO SCH (19:00)
[2017-06-24] MEDS ORDERED: ABACAVIR PO SCH (19:00)
[2017-06-24] MEDS ORDERED: DOLUTEGRAVIR PO SCH (19:00)
[2017-06-25 07:16] VITALS: BP 100/60
[2017-06-25] MEDS: OSELTAMIVIR PHOSPHATE 75 MG CAP PO SCH (08:03)
[2017-06-25] MEDS: ACETAMINOPHEN 325 MG TAB PO PRN (08:03)
[2017-06-25 08:14] VITALS: PULSE 100; RESP 20; O2SAT 94
[2017-06-25 09:41] VITALS: TEMP 98.8
--- NOTE | 2017-06-25 13:40 | GDS ---
[f rep st] DISCHARGE SUMMARY DISCHARGE DIAGNOSIS: Influenza A. PHYSICAL EXAM: GENERAL: The patient is alert. VITAL SIGNS: Afebrile 37.1, pulse is 90, respirator y rate is 20, blood pressure is 100/60, he is saturating greater than 90% on room air. I have seen a nd evaluated the patient on the day of discharge. HOSPITAL COURSE: The patient is a 22-year-old male, who presented to the emergency room with complai nts of fever and cough. He was evaluated and diagnosed with influenza A. He was treated with suppor tive management and started on Tamiflu. His fever does continue however he states he feels better. Blood cultures are pending at the time of disposition. The patient also had several bouts of diarrhe a which has resolved prior to disposition. The patient does have a history of HIV with no notable ac arline response during this hospital course. He will be discharged home to follow up in the outpatient setting with his primary care provider. PENDING STUDIES: Include blood cultures. DISCHARGE MEDICATIONS: Please refer to EMR form. I have provided the patient a prescription for Donovan iflu. I have not discontinued the patient's previously prescribed home medications. /[id number]/MODL
--- NOTE | 2017-06-25 16:24 | ASDISCHSUM ---
Discharge Information Plan Status:Home with No Needs Medically Cleared to Leave:06/24/2017 Discharge Date:06/25/2017 11:32 AM CM D/C Disposition:Home, Routine, Self-Care ADT D/C Disposition:Home, Routine, Self-Care Projected Discharge Date:06/25/2017 11:32 AM Transportation at D/C:Family Discharge Delay Reason: Follow-Up Date:06/25/2017 11:32 AM Discharge Slot: Final Diagnosis: Placement Information Patient Contact Information Contact Name:JULIAPEPITO Relationship:Friend Address: Work Phone: Sanjeev:[email or web address] Alternate Phone: [facility]/Zip Code:[place] Email: Financial Information Financial Class:HMO and PPO Plans Primary Plan Desc:[employer] Primary Plan Number:[id number] Secondary Plan Desc: Secondary Plan Number: Assessment Information [facility] CM Progress Note CM Note CM Note Notes: Pt admitted for flu. Anticipate pt will DC with no needs. C/M available if needs change. Date Signed: 06/24/2017 10:18 AM Electronically Signed By:Ranjana Zapata LCSW Case Management Discharge Plan Note Case Management Discharge Discharge Order Complete? Answers: Yes Patient to Obtain Answers: Independently Medications Transportation Arranged Answers: Family/Friends EMTALA Complete Answers: No Case Management Transport Answers: No Form Complete Faxed Final Orders Answers: No Agency/Facility Transfer Answers: No Report Printed & Faxed to Receiving Agency Family Notified Answers: No Date Signed: 06/25/2017 11:01 AM Electronically Signed By:Libby Sanford RN LACE LACE Length of stay for Answers: 1 day current admission Acuity / Level of Care Answers: Was the patient admitted to hospital via the emergency department? Yes: Emergency dept visits in Answers: 1 last 6 months Score: 5 Date Signed: 06/25/2017 11:02 AM Electronically Signed By:Libby Sanford RN Intervention Information
== END 2017-06-25 11:32 | disposition home or self-care (01) ==
LOC: F3E 06-24 00:57
PROVIDERS: ADMIT Family Medicine; ATTEND Internal Medicine
DX: J10.1 Influenza due to other identified influenza virus with other respiratory manifestations (principal); R00.0 Tachycardia, unspecified; R19.7 Diarrhea, unspecified; Z21 Asymptomatic human immunodeficiency virus [HIV] infection status
CPT/HCPCS: 71020; G0378; 96374; J2405